=== PATIENT | female | born 1975 | race Caucasian/White ===

== ENCOUNTER 2017-04-04 09:20 | Emergency (ER) | payer SELFPAY ==
[~2017-04-04 09:20] MED LIST: LORT5TAB PO; Z.0.NO CURRENT MEDS
[2017-04-04 09:24] VITALS: BP 147/99; PULSE 88; RESP 16; TEMP 98.1; O2SAT 100
--- NOTE | 2017-04-04 09:57 | PD ---
HPI Chief Complaint: Skin Problem Time Seen by Provider: 09:57 Travel History International Travel<30 days: No Contact w/Intl Traveler<30days: No Traveled to known affect area: No History of Present Illness HPI 41-year-old female presents to the emergency Department with complaint of a generalized itchy rash for the last 4-5 days. Says she just moved into her sister's spare bedroom and developed a rash. Rashes to her chest, abdomen, waistline, bilateral upper and lower extremities. This is an area to her right forearm that is draining some whitish drainage because she's been scratching it so much. Denies fever, vomiting. Denies new exposures to lotions, soaps, detergents, foods, medications, and her mental exposures. Has been using calamine lotion and taking Benadryl with no relief of symptoms. Symptoms are moderate in severity. Allergies to codeine. Has no other medical complaints. No other modifying factors or associated signs and symptoms. PFSH Past Medical History Diminished Hearing: No ?: Not LMP: 04/04/17 Ectopic : Yes Social History Alcohol Use: Yes (12 PACK A NIGHT FOR LAST WEEK) Tobacco Use: Yes (1/2 PPD) Substance Use: No Allergies-Medications (Allergen,Severity, Reaction): Coded Allergies: codeine (Unverified Allergy, Mild, ITCHING, 02/03/17) Reported Meds & Prescriptions Reported Meds & Active Scripts Active Keflex (Cephalexin) 500 Mg Cap 500 Mg PO Q8H 10 Days Bactrim DS (Sulfamethoxazole-Trimethoprim) 800-160 Mg Tab 1 Tab PO BID 10 Days Deltasone (Prednisone) 20 Mg Tab 40 Mg PO DAILY 4 Days start 04/05/2017 Elimite Topical (Permethrin) 5% Cream 1 Applic TOPICAL ONCE Lortab 5/500 (Acetaminophen/Hydrocodone Bitart) 5 Mg/500 Mg Tab 1 Tab PO Q6HPRN Reported No [facility]s [facility] Med[facility] Systems Except as stated in HPI: all other systems reviewed are Neg Physical Exam Narrative GENERAL: Well-nourished, well-developed female patient, in no acute distress; afebrile, nontoxic-appearing SKIN: Warm and dry. Generalized erythremic pimple-like rash to chest, abdomen, back, bilateral upper extremity, bilateral lower extremities; some areas appear excoriated. There is an area to the right forearm and right antecubital area that appears cellulitic and infected; minimal amount of serosanguineous drainage noted. HEAD: Atraumatic. Normocephalic. EYES: Pupils equal and round. No scleral icterus. No injection or drainage. ENT: Mucosa pink and moist. Airway patent. NECK: Trachea midline. CARDIOVASCULAR: Regular rate. RESPIRATORY: No accessory muscle use. GASTROINTESTINAL: Flat. MUSCULOSKELETAL: No obvious deformities. No clubbing. No cyanosis. No edema. NEUROLOGICAL: Awake and alert. Oriented 3. No obvious cranial nerve deficits. Motor grossly within normal limits. Normal speech. PSYCHIATRIC: Appropriate mood and affect; insight and judgment normal. Data Data Last Documented VS Vital Signs Date Time Temp Pulse Resp B/P (MAP) Pulse Ox O2 Delivery O2 Flow Rate FiO2 04/04/17 09:24 98.1 88 16 147/99 (115) 100 Orders Orders Prednisone (Deltasone) (04/04/17 10:00) Diphenhydramine (Benadryl) (04/04/17 10:00) Ed Discharge Order (04/04/17 09:58) MDM Medical Decision Making Medical Screen Exam Complete: Yes Emergency Medical Condition: Yes Medical Record Reviewed: Yes Differential Diagnosis Scabies, bedbugs, contact dermatitis, hives Narrative Course 41-year-old female with generalized rash that seems to be consistent with scabies. She is afebrile and nontoxic-appearing. There is an area to the right forearm and antecubital area that appears cellulitic is likely from excessive scratching. She denies fever, vomiting. Benadryl and Deltasone administered in the ER. Bactrim, Keflex, Elimite cream, Deltasone prescribed for home. Instructed patient to follow up with dermatology as needed. Instructed patient to follow up with primary care provider. Patient verbalizes understanding and agreement with treatment plan. Patient is medically cleared and stable for discharge. Discussed reasons to return to the emergency department. Patient agrees with treatment plan. The patients vital signs are stable and the patient is stable for outpatient follow-up and treatment. Patient discharged home, stable and in no acute distress. Diagnosis Primary Impression: Rash and nonspecific skin eruption Referrals: [facility] [employer] Install[employer]r Primary Care Physician Patient Instructions: Acute Rash (ED), Bed Bugs (GEN), Contact Dermatitis (ED) , General Instructions, Scabies (ED) Departure Forms: Tests/Procedures, Work Release Enter return to work date: Apr 06, 2017 Additional Instructions: Take oral steroids as prescribed Uwid-skk-hicreci topicals to reduce itch Benadryl as directed and as needed to reduce itch Follow-up with your primary care provider Return to the emergency department immediately with worsening of symptoms Elimite cream as directed; repeat in one week as needed Soaking in cool water or apply cool, wet washcloths to irritated areas to minimize itching Apply anti-itch creams, such as calamine lotion, to relieve pain and itching as needed Oact-zda-ywknxwk antihistamines as needed and as directed to relieve allergic symptoms caused by scabies Wash all pillows, linens, blankets, etc. in hot water and dry in hot dryer Bag and all unwashable linens, [place] stuffed animals, etc. in a tightly sealed garbage bag for up to 2 weeks Follow-up with business applications developer Follow-up with primary care provider Return to the emergency department immediately with worsening of symptoms Med/Other Pt SpecificInfo: Prescription(s) given Scripts Cephalexin (Keflex) 500 Mg Cap 500 MG PO Q8H for Infection for 10 Days, #30 CAP 0 Refills Prov: Tiff Garvin 04/04/17 Sulfamethoxazole-Trimethoprim (Bactrim DS) 800-160 Mg Tab 1 TAB PO BID for Infection for 10 Days, #20 TAB 0 Refills Prov: Tiff Garvin 04/04/17 Prednisone (Deltasone) 20 Mg Tab 40 MG PO DAILY for 4 Days, #8 TAB 0 Refills start 04/05/2017 Prov: Tiff Garvin 04/04/17 Permethrin Topical (Elimite Topical) 5% Cream 1 APPLIC TOPICAL ONCE for Scabies, #1 TUBE 1 Refill Prov: Tiff Garvin 04/04/17 Disposition: 01 DISCHARGE HOME Condition: Stable Tiff Garvin Apr 04, 2017 09:57
[2017-04-04] MEDS ORDERED: predniSONE 20 MG TAB PO ONE (10:00)
[2017-04-04] MEDS ORDERED: diphenhydrAMINE HCL 50 MG CAP PO ONE (10:00)
[2017-04-04] MEDS ORDERED: PRED-503 PO (10:01)
[2017-04-04] MEDS ORDERED: BACT800T5 PO (10:01)
[2017-04-04] MEDS ORDERED: PERM5CRE11 TOPICAL (10:01)
[2017-04-04] MEDS ORDERED: CEPH-460 PO (10:01)
[2017-04-04 10:17] VITALS: BP 149/93
== END 2017-04-04 11:15 | disposition home or self-care (01) ==
LOC: NEPK 09:20
DX: R21 Rash and other nonspecific skin eruption (principal); F17.200 Nicotine dependence, unspecified, uncomplicated
CPT/HCPCS: 99284; J7512; Q0163

== ENCOUNTER 2017-04-09 09:29 | Emergency (ER) | payer SELFPAY ==
[~2017-04-09] VITALS: Ht 157.5 cm; Wt 65.0 kg
[~2017-04-09 09:29] MED LIST changes: +BACT800T5 PO; +CEPH-460 PO; +PERM5CRE11 TOPICAL; +PRED-503 PO
[2017-04-09 09:33] VITALS: BP 160/89; PULSE 86; RESP 14; TEMP 98.5; O2SAT 98
--- NOTE | 2017-04-09 10:28 | PD ---
HPI Chief Complaint: Skin Problem Time Seen by Provider: 10:20 Travel History International Travel<30 days: No Contact w/Intl Traveler<30days: No Traveled to known affect area: No History of Present Illness HPI 41-year-old female presents to the emergency Department with complaint of continued itchy rash after being seen on April 04 and treated with Elimite cream, Keflex, Bactrim, and oral steroids. He saw this patient on April 04. She reports improvement in the areas that appear to be infected when I saw her last. She denies fever, vomiting. Reports continued itching. She states that the rash hasn't gotten worse, but It hasn't gotten better either. She has cleaned up the house and washed all of her linens. No one else has similar symptoms in the house. Allergies to codeine. Has no other medical complaints. No other modifying factors or associated signs and symptoms. History Past Medical Histgory LMP: 04/04/17 Social History Alcohol Use: Yes (12 PACK A NIGHT FOR LAST WEEK) Tobacco Use: Yes (1/2 PPD) Allergies-Medications (Allergen,Severity, Reaction): Coded Allergies: codeine (Unverified Allergy, Mild, ITCHING, 02/03/17) Reported Meds & Prescriptions Reported Meds & Active Scripts Active Keflex (Cephalexin) 500 Mg Cap 500 Mg PO Q8H 10 Days Bactrim DS (Sulfamethoxazole-Trimethoprim) 800-160 Mg Tab 1 Tab PO BID 10 Days Deltasone (Prednisone) 20 Mg Tab 40 Mg PO DAILY 4 Days start 04/05/2017 Elimite Topical (Permethrin) 5% Cream 1 Applic TOPICAL ONCE Lortab 5/500 (Acetaminophen/Hydrocodone Bitart) 5 Mg/500 Mg Tab 1 Tab PO Q6HPRN Reported No Current Meds (Miscellaneous Medication) [facility] Review of Systems Except as stated in HPI: all other systems reviewed are Neg Physical Exam Narrative GENERAL: Well-nourished, well-developed female patient, in no acute distress; afebrile, nontoxic-appearing SKIN: Warm and dry. Generalized erythremic pimple-like rash to bilateral upper extremities, waistline of back; some areas appear excoriated. No areas with cellulitic process noted. HEAD: Atraumatic. Normocephalic. EYES: Pupils equal and round. No scleral icterus. No injection or drainage. ENT: Mucosa pink and moist. Airway patent. NECK: Trachea midline. CARDIOVASCULAR: Regular rate. RESPIRATORY: No accessory muscle use. GASTROINTESTINAL: Flat. MUSCULOSKELETAL: No obvious deformities. No clubbing. No cyanosis. No edema. NEUROLOGICAL: Awake and alert. Oriented 3. No obvious cranial nerve deficits. Motor grossly within normal limits. Normal speech. PSYCHIATRIC: Appropriate mood and affect; insight and judgment normal. Data Data Last Documented VS Vital Signs Date Time Temp Pulse Resp B/P (MAP) Pulse Ox O2 Delivery O2 Flow Rate FiO2 04/09/17 09:33 98.5 86 14 160/89 (112) 98 MDM Medical Screen Exam Complete: Yes Emergency Medical Condition: No Differential Diagnosis Nonspecific rash or skin interruption Narrative Course I saw this patient on April 04 and treated her with Elimite cream, Keflex, Bactrim, and Deltasone for a nonspecific rash seemed to be consistent with scabies and some areas that appeared infected from excoriation. She has treated herself with the Elimite cream, took the Deltasone, and has continued the Keflex and Bactrim with improvement in the areas that appeared infected, but the rash to her waistline and bilateral upper extremities has remained. She denies fever, vomiting. She is afebrile and nontoxic-appearing. I provided the patient with information to follow-up at [facility]. She has A prescription refill for the Elimite cream. Instructed patient to use Elimite cream again in 2 days and to follow-up with a cellulitis health clinic and dermatology. Vital signs are stable and the patient is stable for outpatient follow-up and treatment. The pateint has no urgent or emergent medical complaints. There is no emergent or urgent medical need at this time. I instructed the patient to follow up with [facility] primary care provider. A medical screening exam was performed: At the time of evaluation the presenting medical condition was determined not to be of an emergent nature. The patient was given the option of receiving additional care, but declined. Patient was given options for additional community resources from which to obtain care. The Patient Has Been advised to seek medical attention for their presenting complaint. The patient has been advised to return to the ER at any time if an emergent condition develops. Primary Impression: Encounter for medical screening examination Condition: Stable Tiff Garvin Apr 09, 2017 10:28
== END 2017-04-09 10:31 | disposition left against medical advice (07) ==
LOC: NEPK 09:29
DX: R21 Rash and other nonspecific skin eruption (principal); L29.9 Pruritus, unspecified; F17.200 Nicotine dependence, unspecified, uncomplicated
CPT/HCPCS: 99281